=== PATIENT | female | born 1965 ===

== ENCOUNTER 2023-02-28 08:10 | Day surgery (SDC) | payer OTHER | END 2023-02-28 16:10 | disposition home or self-care (01) | LOC: AMB-ENDOS 08:10 | PROVIDERS: ATTEND Colon & Rectal Surgery | DX: K57.30 Diverticulosis of large intestine without perforation or abscess without bleeding (principal); Z86.010 Personal history of colon polyps; K64.8 Other hemorrhoids; K92.1 Melena; E03.9 Hypothyroidism, unspecified; E78.5 Hyperlipidemia, unspecified; Z20.822 Contact with and (suspected) exposure to COVID-19 ==